=== PATIENT | female | born 1985 | race Caucasian/White ===

== ENCOUNTER 2017-10-11 10:44 | Emergency (ER) | payer MEDICAID ==
[2010-11-02 15:04] VITALS: BMI 20.9
[2017-10-11 11:38] LABS: EOSINOPHILS 1.3 % (0-7); HEMATOCRIT 33.3 % (36.0-48.0); HEMOGLOBIN 11.2 g/dL (12-16); IMMATURE GRANULOCYTES 5.8 % (0-5); LYMPHOCYTES 28.1 % (15-50); MCHC 33.6 g/dL (31.0-37.0); MCV 86.3 fL (80.0-100.0); MEAN PLATELET VOLUME 9.1 fL (7.4-10.4); MONOCYTES 8.5 % (2-11); NEUTROPHILS 55.3 % (40-80); PLATELET COUNT 236 10x3/uL (130-400); RBC 3.86 10x6/uL (4.00-5.40); RDW 13.1 % (11.5-14.5)
[2017-10-11 11:50] LABS: APTT 27.2 SECONDS (22.8-39.4); INR 0.99 (0.85-1.17); PROTIME 12.7 SECONDS (11.6-15.0)
[2017-10-11 11:51] LABS: D-DIMER-QUANTITATIVE 1.63 ug/mLFEU (0.20-0.54)
[2017-10-11 11:54] LABS: ALBUMIN 2.6 g/dL (3.4-5.0); ALKALINE PHOSPHATASE 96 U/L (46-116); ALT (SGPT) 12 U/L (10-68); BILIRUBIN - TOTAL 0.31 mg/dL (0.2-1.3); CALC OSMOLALITY 268 mosm/kg (275-300); CALCIUM 9.3 mg/dL (8.5-10.1); CARBON DIOXIDE 18.1 mmol/L (21.0-32.0); CHLORIDE - SERUM 104 mmol/L (98-107); CREATININE - SERUM 0.7 mg/dL (0.6-1.3); GLUCOSE 120 mg/dL (74-106); POTASSIUM - SERUM 3.3 mmol/L (3.5-5.1); PROTEIN - SERUM 7.2 g/dL (6.4-8.2); SODIUM 135 mmol/L (136-145); UREA NITROGEN 7 mg/dL (7-18); eGFR NON AFRICAN AMERICAN > 90 mL/min (90-120)
[2017-10-11 12:20] LABS: AMYLASE - SERUM 116 U/L (25-115); LIPASE 345 U/L (73-393); PRO BNP 24 pg/mL (0-125)
[2017-10-11 12:24] LABS: CREATINE KINASE 4 UL (21-215); TROPONIN-I < 0.017 ng/mL (0.000-0.060)
[2017-10-11 17:11] LABS: HCG - QUANTITATIVE (MATERNAL) 10283 mIU/mL; TROPONIN-I < 0.017 ng/mL (0.000-0.060)
== END 2017-10-11 18:10 | disposition home or self-care (01) ==
LOC: D.ER 10:44
PROVIDERS: Family Medicine
DX: R06.00 Dyspnea, unspecified (principal); R00.0 Tachycardia, unspecified

== ENCOUNTER 2019-08-23 12:58 | Emergency (ER) | payer OTHER ==
[~2019-08-23] VITALS: Ht 170.2 cm; Wt 87.7 kg
[2019-08-23 13:10] VITALS: Ht 170.2 cm; Wt 87.7 kg
[2019-08-23] MEDS ORDERED: TAMIFLU75 MG PO (14:29)
[2019-08-23 15:01] VITALS: BP 150/105
== END 2019-08-23 15:01 | disposition home or self-care (01) ==
LOC: D.ER 12:58
DX: Z20.828 Contact with and (suspected) exposure to other viral communicable diseases (principal); R05 Cough